=== PATIENT | female | born 1925 | race Caucasian/White ===

== ENCOUNTER 2017-06-07 15:20 | Inpatient (IN) | payer OTHER ==
[~2017-06-07] VITALS: Ht 157.5 cm; Wt 81.0 kg
[2017-06-07 19:19] LABS: CARBON DIOXIDE 32.1 mmol/L (21-32); CHLORIDE SERUM 93 mmol/L (98-107); CREATININE SERUM 0.8 mg/dL (0.6-1.0); GLUCOSE SERUM 103 mg/dL (74-106); POTASSIUM SERUM 3.4 mmol/L (3.5-5.1); SODIUM SERUM 128 mmol/L (136-145)
[2017-06-07 19:20] LABS: RED CELL DISTRIBUTION WIDTH 15.8 % (11.5-14.5)
[2017-06-07 19:21] LABS: PLATELET COUNT 1071 x10^3mcL (130-400)
[2017-06-07 19:23] LABS: ALKALINE PHOSPHATASE 76 U/L (46-116); ALT/SGPT 21 U/L (14-59); AST/SGOT 22 U/L (15-37); LIPASE 111 IU/L (73-393); TOTAL PROTEIN, SERUM 6.7 g/dL (6.4-8.2); TRIGLYCERIDES 114 mg/dL (<150)
[2017-06-07 19:24] LABS: ALBUMIN 3.3 g/dL (3.4-5.0); CHOLESTEROL 130 mg/dL (<200); CHOLESTEROL/HDL RATIO 1.8; HDL CHOLESTEROL 71 mg/dL (40-60)
[2017-06-07 19:35] LABS: T3 TOTAL 1.3 ng/mL
[2017-06-07 19:37] LABS: UA SPECIFIC GRAVITY 1.015 (1.005-1.035); microscopic required? YES; urine erythrocyte TRACE (NEGATIVE)
[2017-06-07 19:42] LABS: MONOCYTE 9 % (0-7); SEGMENTED NEUTROPHILS 75 % (37-75)
[2017-06-07 19:43] LABS: BAND NEUTROPHIL 0 % (0-10); BASOPHIL 0 % (0-2); rbc morphology (normal/abnorm) NORMAL (NORMAL)
[2017-06-07 19:46] LABS: FREE T4 1.14 ng/dL (0.76-1.46); FREE THYROXINE INDEX 3.3 ug/dL (1.4-4.5); T4(THYROXINE) 9.6 ug/dL (4.7-13.3)
[2017-06-07] MEDS ORDERED: TENORMIN100 MG PO (20:19)
[2017-06-07 20:50] LABS: MAGNESIUM 1.9 mg/dL (1.8-2.4); PHOSPHOROUS 3.2 mg/dL (2.5-4.9)
[2017-06-07 21:45] VITALS: BP 151/69
[2017-06-07 21:58] VITALS: BP 151/69
[2017-06-08 05:42] VITALS: BP 134/64
[2017-06-08 06:26] LABS: CALCIUM 9.4 mg/dL (8.5-10.1); CARBON DIOXIDE 24.2 mmol/L (21-32); CHLORIDE SERUM 93 mmol/L (98-107); CREATININE SERUM 0.8 mg/dL (0.6-1.0); GLUCOSE SERUM 81 mg/dL (74-106); POTASSIUM SERUM 4.4 mmol/L (3.5-5.1); SODIUM SERUM 127 mmol/L (136-145)
[2017-06-08 09:39] VITALS: BP 122/50
[2017-06-08 12:52] LABS: RED CELL DISTRIBUTION WIDTH 15.5 % (11.5-14.5)
[2017-06-08 12:53] LABS: PLATELET COUNT 1027 x10^3mcL (130-400)
[2017-06-08 13:19] VITALS: BP 151/75
[2017-06-08 13:59] LABS: BAND NEUTROPHIL 12 % (0-10); BASOPHIL 0 % (0-2); MONOCYTE 5 % (0-7); SEGMENTED NEUTROPHILS 78 % (37-75)
[2017-06-08 14:00] LABS: ovalocyte/elliptocyte 1+; rbc morphology (normal/abnorm) ABNORMAL (NORMAL)
[2017-06-08 17:42] VITALS: BP 138/67
[2017-06-08 21:07] VITALS: BP 142/62
[2017-06-09 06:19] VITALS: BP 131/74
[2017-06-09 07:00] LABS: CALCIUM 8.3 mg/dL (8.5-10.1); CARBON DIOXIDE 28.1 mmol/L (21-32); CHLORIDE SERUM 97 mmol/L (98-107); CREATININE SERUM 0.8 mg/dL (0.6-1.0); GLUCOSE SERUM 90 mg/dL (74-106); POTASSIUM SERUM 3.9 mmol/L (3.5-5.1); SODIUM SERUM 132 mmol/L (136-145)
[2017-06-09 08:15] LABS: RED CELL DISTRIBUTION WIDTH 15.8 % (11.5-14.5)
[2017-06-09 08:17] LABS: PLATELET COUNT 900 x10^3mcL (130-400)
[2017-06-09 08:41] LABS: BAND NEUTROPHIL 3 % (0-10); BASOPHIL 0 % (0-2); MONOCYTE 10 % (0-7); SEGMENTED NEUTROPHILS 75 % (37-75); rbc morphology (normal/abnorm) ABNORMAL (NORMAL)
[2017-06-09 09:24] VITALS: BP 141/64
[2017-06-09 13:11] VITALS: BP 148/75
[2017-06-09 16:46] VITALS: BP 125/55
[2017-06-09 20:04] VITALS: BP 126/63
[2017-06-09 21:24] VITALS: BP 146/65
[2017-06-10 06:15] VITALS: BP 160/69
[2017-06-10 07:07] LABS: BASOPHIL % 0.4 % (0-2)
[2017-06-10 07:11] LABS: RED CELL DISTRIBUTION WIDTH 15.9 % (11.5-14.5)
[2017-06-10 07:12] LABS: PLATELET COUNT 879 x10^3mcL (130-400)
[2017-06-10 07:15] LABS: CALCIUM 8.3 mg/dL (8.5-10.1); CARBON DIOXIDE 28.2 mmol/L (21-32); CHLORIDE SERUM 94 mmol/L (98-107); CREATININE SERUM 0.8 mg/dL (0.6-1.0); GLUCOSE SERUM 86 mg/dL (74-106); POTASSIUM SERUM 3.8 mmol/L (3.5-5.1); SODIUM SERUM 129 mmol/L (136-145)
[2017-06-10 09:40] VITALS: BP 137/59
[2017-06-10] MEDS ORDERED: ROC1I IV (11:43)
[2017-06-10] MEDS ORDERED: LIPI10 PO (11:43)
[2017-06-10] MEDS ORDERED: ECO81 PO (11:44)
[2017-06-10] MEDS ORDERED: COL100 PO (11:45)
[2017-06-10] MEDS ORDERED: SOD1 PO (11:45)
[2017-06-10] MEDS ORDERED: LAC PO (11:46)
[2017-06-10] MEDS ORDERED: TOR10 PO (11:47)
[2017-06-10] MEDS ORDERED: DULOXETINE HYDR60 MG PO (11:48)
[2017-06-10 12:43] VITALS: BP 137/59
== END 2017-06-10 15:15 | DRG 689 ==
LOC: ED 15:20 → DU 19:43
PROVIDERS: Specialist; ADMIT Family Medicine
PROC: 0R9J3ZZ Drainage of Right Shoulder Joint, Percutaneous Approach (ICD-10-PCS; principal; 2017-06-10)
DX: N39.0 Urinary tract infection, site not specified (principal); N17.0 Acute kidney failure with tubular necrosis; G93.41 Metabolic encephalopathy; E87.1 Hypo-osmolality and hyponatremia; E44.1 Mild protein-calorie malnutrition; E86.0 Dehydration; F32.9 Major depressive disorder, single episode, unspecified; D47.3 Essential (hemorrhagic) thrombocythemia; M25.811 Other specified joint disorders, right shoulder; I10 Essential (primary) hypertension; R29.6 Repeated falls; M15.8 Other polyosteoarthritis; E66.9 Obesity, unspecified; Z96.641 Presence of right artificial hip joint; Z68.32 Body mass index [BMI] 32.0-32.9, adult
CPT/HCPCS: 83880; 84439; 85060; 88344; 97110-GP; 97116-GP; 97530-GP; J0696; J1885; J2001; J2930; J7030; Q0092; Q9967